=== PATIENT | male | born 1945 | race Asian ===

== ENCOUNTER → 2018-06-07 | Outpatient (CLI) | payer MEDICARE, MEDICAID ==
[~2018-06-07] MED LIST: DOXA1TAB2 PO; HYDR25TA6 PO; LISI40TA PO; METF500T17 PO; SIMV20TA3 PO
== END | disposition home or self-care (01) ==
LOC: CFH 08:57
PROVIDERS: ATTEND Genetic Counselor, MS
DX: Z12.2 Encounter for screening for malignant neoplasm of respiratory organs (principal); R91.1 Solitary pulmonary nodule; I25.10 Atherosclerotic heart disease of native coronary artery without angina pectoris; F17.210 Nicotine dependence, cigarettes, uncomplicated
CPT/HCPCS: G0297

== ENCOUNTER → 2020-02-05 | Outpatient (CLI) | payer MEDICAID, MEDICARE ==
[~2020-02-05] MED LIST changes: +SIMV20TA19 PO; -SIMV20TA3 PO
== END | disposition home or self-care (01) ==
LOC: CFH 08:36
PROVIDERS: ATTEND Nurse Practitioner Family
DX: Z12.2 Encounter for screening for malignant neoplasm of respiratory organs (principal); R91.1 Solitary pulmonary nodule; I25.10 Atherosclerotic heart disease of native coronary artery without angina pectoris; Z87.891 Personal history of nicotine dependence
CPT/HCPCS: G0297